=== PATIENT | male | born 1995 | race Caucasian/White ===

== ENCOUNTER 2018-08-14 21:46 | Emergency (ER) | payer BC ==
[~2018-08-14] VITALS: Ht 177.8 cm; Wt 67.0 kg
[2018-08-14 21:57] VITALS: BP 138/69
== END 2018-08-14 22:21 | disposition home or self-care (01) ==
LOC: ER 21:48
DX: Z00.8 Encounter for other general examination (principal)
CPT/HCPCS: 99281